=== PATIENT | female | born 1945 | race Caucasian/White ===

== ENCOUNTER 2020-09-17 07:45 | Outpatient (CLI) | payer MEDICARE ==
--- NOTE | 2020-09-17 08:18 | BD ---
EXAM: Bone densitometry using DEXA HISTORY: 75 yo female. Screening for postmenopausal osteoporosis FINDINGS: L1--bone mineral density 0.957 g/sq cm; T score -0.3 ; Z score 1.8 L2--bone mineral density 1.016 g/sq cm; T score -0.1 ; Z score 2.2 L3--bone mineral density 1.019 g/sq cm; T score -0.6 ; Z score 1.9 L4--bone mineral density 0.989 g/sq cm; T score -0.7 ; Z score 1.9 Total L1-L4--bone mineral density 0.995 g/sq cm; T score -2.5 ; Z score 1.9 Left femoral neck--bone mineral density0.599; T score -2.3 ; Z score -0.2 Total proximal left femur--bone mineral density 0.917; T score -0.2 ; Z score 1.5 The 10 year fracture risk for a major osteoporotic fracture is 14% and for a hip fracture is 3.8%. IMPRESSION: Osteopenia
== END 2020-09-17 07:46 | disposition home or self-care (01) ==
LOC: BICMAMMO 07:45
PROVIDERS: ATTEND Internal Medicine
DX: Z13.820 Encounter for screening for osteoporosis (principal); Z78.0 Asymptomatic menopausal state; M85.89 Other specified disorders of bone density and structure, multiple sites
CPT/HCPCS: 77080

== ENCOUNTER 2020-09-30 14:38 | Outpatient (CLI) | payer MEDICARE ==
--- NOTE | 2020-09-30 15:49 | ULT ---
RENAL SONOGRAM: 09/30/20 HISTORY: Recurrent urinary tract infections. FINDINGS: The kidneys demonstrate a normal sonographic appearance bilaterally without evidence of a renal mass, renal calculus, or hydronephrosis. No perinephric fluid collection is seen. The right kidney measures 9.3 cm x 5.1 cm with the left kidney measuring 10 cm x 4.8 cm. Urinary bladder demonstrates a normal sonographic appearance. Pre urinary bladder volume is 321.9 mL. Post void urinary bladder volume is 56 mL. IMPRESSION: 1. Normal appearance of the bilateral kidneys without hydronephrosis. 2. Small post void residual volume of 56 mL. POS: [facility]
== END 2020-09-30 14:39 | disposition home or self-care (01) ==
LOC: BICULT 14:38
PROVIDERS: ATTEND Advanced Practice Midwife
DX: N39.0 Urinary tract infection, site not specified (principal)
CPT/HCPCS: 76770